=== PATIENT | male | born 1950 | race Caucasian/White ===

== ENCOUNTER → 2017-12-10 | Outpatient (CLI) | payer MEDICARE, OTHER | END | disposition home or self-care (01) | LOC: CVU 09:58 | PROVIDERS: ATTEND Internal Medicine | DX: I65.23 Occlusion and stenosis of bilateral carotid arteries (principal); I10 Essential (primary) hypertension; E78.5 Hyperlipidemia, unspecified; C61 Malignant neoplasm of prostate; M48.02 Spinal stenosis, cervical region | CPT/HCPCS: 93017; 93880 ==

== ENCOUNTER 2020-11-29 13:02 | Observation (INO) | payer MEDICARE, OTHER ==
[~2020-11-29] VITALS: Ht 170.2 cm; Wt 75.1 kg
--- NOTE | 2020-11-29 13:53 | NUR ---
PT SENT TO ER BY PCP. PT STATES THAT LATELY HIS HEART RATE HAS BEEN GETTING LOWER AND AT NIGHT, IT DROPS TO THE 40'S. HE WAKES UP FEELING A TIGHTNESS IN HIS CHEST. THE TIGHTNESS IS RELIEVED BY WALKING AND ELEVATING THE HEART RATE. PER PT, HIS EKG TODAY AT HIS DOCTORS OFFICE SHOWED ST DEPRESSION AND PHYSICIAN WANTED HIM TO COME TO THE ER FOR FURTHER EVALUATION. PT DENIES ANY CHEST PAIN, SOB OR N/V. PT DENIES TAKING ANY BETA BLOCKERS AND ONLY TAKES LOSARTAN FOR HTN.
[2020-11-29 14:12] LABS: BASOPHILS % (AUTO) 1 % (0-1); EOSINOPHILS % (AUTO) 1 % (1-7); LYMPHOCYTES % (AUTO) 18 % (22-44); MEAN CORPUSCULAR HEMOGLOBIN 32.1 pg (27.5-34.5); MEAN CORPUSCULAR HGB CONC 34.3 g/dL (33.2-36.2); MEAN PLATELET VOLUME 8.5 fL (7.4-10.4); MONOCYTES % (AUTO) 10 % (2-9); NEUTROPHILS % (AUTO) 69 % (42-75); PLATELET COUNT 262 x10^3/uL (130-400); RED BLOOD COUNT 5.17 x10^6/uL (4.38-5.82); RED CELL DISTRIBUTION WIDTH 13.2 % (9.4-14.8)
[2020-11-29 14:15] LABS: ALBUMIN 3.9 g/dL (3.4-5.0); ANION GAP 8 mmol/L (5-15); CALCIUM 8.9 mg/dL (8.5-10.1); CHLORIDE 109 mmol/L (98-107); CREATININE 0.97 mg/dL (0.7-1.3)
[2020-11-29 14:16] LABS: MD NO
[2020-11-29 14:19] LABS: TROPONIN I < 0.015 ng/mL (0.000-0.045)
--- NOTE | 2020-11-29 14:31 | NUR ---
PT RESTING IN BED COMFORTABLY. CALL LIGHT WITHIN REACH.
[2020-11-29] MEDS ORDERED: ASPIRIN 325 MG TABLET ONE (14:55)
[2020-11-29] MEDS ORDERED: hydrALAzine 20 MG/ML, 1ML ONE (14:55)
[2020-11-29] MEDS: ASPIRIN 325 MG TABLET PO ONE ×2 (14:58→15:00)
[2020-11-29] MEDS ORDERED: LABETALOL 5MG/ML, 20ML IVPush ONE (15:00)
[2020-11-29] MEDS ORDERED: hydrALAzine 20 MG/ML, 1ML IV ONE (15:00)
--- NOTE | 2020-11-29 15:03 | NUR ---
TASK RN: IV started, hydralazine given per eMAR, provided pt a pillow, checked vital signs. Pt resting comfortably, denies needs at this time.
--- NOTE | 2020-11-29 15:26 | NUR ---
TASK RN: Aspirin ordered but not given- pt states he took 4 baby aspirin at [address] Reich.
--- NOTE | 2020-11-29 15:32 | NUR ---
REPORT GIVEN TO RAÚL SAUCEDA
[2020-11-29 15:58] VITALS: BP 159/71
[2020-11-29] MEDS ORDERED: LOSA50TA14 PO (16:33)
[2020-11-29] MEDS ORDERED: DOCUSATE 100 MG CAPSULE PO PRN (17:30)
[2020-11-29] MEDS ORDERED: ONDANSETRON 2MG/ML, 2ML IVPush PRN (17:30)
[2020-11-29] MEDS ORDERED: LABETALOL 5MG/ML, 20ML IVPush PRN (17:30)
[2020-11-29] MEDS ORDERED: hydrALAzine 20 MG/ML, 1ML IVPush PRN (17:30)
[2020-11-29] MEDS ORDERED: ENALAPRILAT 1.25 MG/ML, 2ML IVPush PRN (17:30)
[2020-11-29] MEDS ORDERED: ACETAMINOPHEN 325 MG TABLET PO PRN (17:30)
[2020-11-29] MEDS ORDERED: POLYETHYLENE GLYCOL 17 GM PACKET PO PRN (17:30)
[2020-11-29] MEDS ORDERED: morphine SULFATE 10 MG/ML, 1ML IVPush PRN (17:30)
[2020-11-29] MEDS ORDERED: MAGNESIUM SULFATE PMX 2GM/50ML 50 ML IV ONE (18:00)
[2020-11-29] MEDS ORDERED: ENOXAPARIN 40 MG/0.4 ML SQ SCH (18:00)
[2020-11-29] MEDS: LOSARTAN 50MG TABLET PO SCH ×2 (18:10→18:29)
[2020-11-29 18:21] VITALS: BP 181/79
[2020-11-29] MEDS ORDERED: LOSARTAN 50MG TABLET ONE (18:28)
[2020-11-29 20:41] LABS: TROPONIN I < 0.015 ng/mL (0.000-0.045)
[2020-11-29 21:30] VITALS: BP 149/75
[2020-11-30 01:05] VITALS: BP 158/84
[2020-11-30 02:20] LABS: BASOPHILS % (AUTO) 1 % (0-1); EOSINOPHILS % (AUTO) 2 % (1-7); LYMPHOCYTES % (AUTO) 24 % (22-44); MEAN CORPUSCULAR HEMOGLOBIN 31.4 pg (27.5-34.5); MEAN CORPUSCULAR HGB CONC 33.8 g/dL (33.2-36.2); MEAN PLATELET VOLUME 8.7 fL (7.4-10.4); MONOCYTES % (AUTO) 13 % (2-9); NEUTROPHILS % (AUTO) 59 % (42-75); PLATELET COUNT 270 x10^3/uL (130-400); RED BLOOD COUNT 5.33 x10^6/uL (4.38-5.82); RED CELL DISTRIBUTION WIDTH 13.3 % (9.4-14.8)
[2020-11-30 02:25] LABS: MD NO
[2020-11-30 02:33] LABS: ALANINE AMINOTRANSFERASE 31 U/L (12-78); ALBUMIN 3.6 g/dL (3.4-5.0); ANION GAP 5 mmol/L (5-15); CALCIUM 8.4 mg/dL (8.5-10.1); CHLORIDE 109 mmol/L (98-107); CHOLESTEROL, TOTAL 167 mg/dL (140-239); CREATININE 0.95 mg/dL (0.7-1.3)
[2020-11-30 02:40] LABS: TROPONIN I < 0.015 ng/mL (0.000-0.045)
[2020-11-30 02:42] LABS: ALKALINE PHOSPHATASE 89 U/L (45-117); BILIRUBIN,TOTAL 0.9 mg/dL (0.2-1.0); HDL CHOL % 25 % (26-37); HDL CHOLESTEROL (DIRECT) 42 mg/dL (40-60); LDL CHOLESTEROL,CALCULATED 108 mg/dL (54-169); LDL/HDL RATIO 2.6 (0.5-3.0); TOTAL PROTEIN 6.9 g/dL (6.4-8.2); TRIGLYCERIDES 83 mg/dL (50-200); VLDL CHOLESTEROL 17 mg/dL (0-25)
[2020-11-30] MEDS ORDERED: ASPIRIN 325 MG TABLET EC PO SCH (06:00)
[2020-11-30 08:06] VITALS: BP 170/90
[2020-11-30] MEDS ORDERED: REGADENOSON 0.4 MG/5 ML SYRINGE ONE (08:06)
[2020-11-30] MEDS ORDERED: AMINOPHYLLINE 25 MG/ML, 10ML ONE (09:37)
[2020-11-30 09:50] LABS: FREE T4 (FREE THYROXINE) 1.46 ng/dL (0.76-1.46)
[2020-11-30 11:52] VITALS: BP 175/81
[2020-11-30 13:46] VITALS: BP 160/74
[2020-11-30] MEDS: LOSARTAN 50MG TABLET PO SCH (14:23)
== END 2020-11-30 15:35 | disposition home or self-care (01) ==
LOC: ED 14:46 → EDIP 14:47 → INTOOBSV 14:47 → ED 15:01 → 5SO 15:56 → DCLOUNGE 11-30 15:30
PROVIDERS: ADMIT Internal Medicine; ATTEND Family Medicine
DX: R07.89 Other chest pain (principal); I16.0 Hypertensive urgency; I10 Essential (primary) hypertension; R00.1 Bradycardia, unspecified; R94.31 Abnormal electrocardiogram [ECG] [EKG]; Z85.46 Personal history of malignant neoplasm of prostate; Z79.899 Other long term (current) drug therapy; Z90.79 Acquired absence of other genital organ(s)
CPT/HCPCS: 36415; 71045; 78452; 80048; 80053; 80061; 82040; 83735; 83880; 84100; 84439; 84443; 84481; 84484; 85025; 93005; 93017; 96365; 96366; 96372; 96375; 96376; 99285; A9502; G0378; J0280; J0360; J1650; J2785; J3475

== ENCOUNTER 2021-05-21 20:41 | Emergency (ER) | payer MEDICARE, OTHER ==
[~2021-05-21] VITALS: Ht 170.2 cm; Wt 74.0 kg
[~2021-05-21 20:41] MED LIST: LOSA50TA14 PO
[2021-05-21] MEDS ORDERED: LACTATED RINGERS 1,000 ML IVBOLUS ONE (21:30)
[2021-05-21 21:45] LABS: BASOPHILS % (AUTO) 0 % (0-1); EOSINOPHILS % (AUTO) 0 % (1-7); LYMPHOCYTES % (AUTO) 7 % (22-44); MEAN CORPUSCULAR HGB CONC 34.1 g/dL (33.2-36.2); MEAN PLATELET VOLUME 8.1 fL (7.4-10.4); MONOCYTES % (AUTO) 13 % (2-9); NEUTROPHILS % (AUTO) 80 % (42-75); PLATELET COUNT 161 x10^3/uL (130-400); RED BLOOD COUNT 5.25 x10^6/uL (4.38-5.82); RED CELL DISTRIBUTION WIDTH 12.8 % (9.4-14.8)
[2021-05-21 21:51] LABS: ALANINE AMINOTRANSFERASE 44 U/L (12-78); ALBUMIN 3.3 g/dL (3.4-5.0); ANION GAP 9 mmol/L (5-15); C-REACTIVE PROTEIN, QUANT 0.59 mg/dL (0.02-0.49); CHLORIDE 102 mmol/L (98-107); CREATININE 0.83 mg/dL (0.7-1.3)
--- NOTE | 2021-05-21 21:55 | NUR ---
COVID SWAB COLLECTED AND WALKED TO LAB
[2021-05-21 21:56] LABS: ALKALINE PHOSPHATASE 74 U/L (45-117); BILIRUBIN,TOTAL 0.5 mg/dL (0.2-1.0); TOTAL PROTEIN 6.6 g/dL (6.4-8.2)
[2021-05-21] MEDS ORDERED: FILTER 0.22 MICRON IV ONE (23:00)
[2021-05-21] MEDS ORDERED: CASIRIVIMAB 600 MG, IMDEVIMAB (REGN10987) 600 MG in SODIUM CHLORIDE 0.9% 250 ML IVPB ONE (23:00)
--- NOTE | 2021-05-21 23:00 | NUR ---
PT RESTING, BED MOVED CLOSER TO WALL SO PT CAN CHARGE PHONE.
--- NOTE | 2021-05-22 00:58 | NUR ---
PT RESTING IN GURNEY, NAD, RESP EVEN AND UNLABORED.
[2021-05-22 01:30] VITALS: BP 140/70
--- NOTE | 2021-05-22 02:02 | NUR ---
Patient given discharge instructions and they have confirmed that they understand the instructions. Family able to drop off clean clothes for patient. Patient ambulatory with steady gait. NAD, all questions answered appropriately, denies additional needs at this time. No personal belongings left in room after discharge.
== END 2021-05-22 02:03 | disposition home or self-care (01) ==
LOC: ED 22:43
DX: U07.1 COVID-19 (principal); B34.9 Viral infection, unspecified; R11.2 Nausea with vomiting, unspecified; I10 Essential (primary) hypertension
CPT/HCPCS: 36415; 71045; 80053; 82728; 83605; 83615; 84145; 85025; 86140; 93005; 96360; 99285; J7120; M0243; U0003; U0005